=== PATIENT | female | born 1980 | race Caucasian/White ===

== ENCOUNTER 2021-10-15 06:26 | Emergency (ER) | payer BC ==
[~2021-10-15 06:26] MED LIST: NAPROSYN375 MG PO; NORFLEX100 MG PO; VICODIN ES 7501 TAB PO
[2021-10-15 06:36] VITALS: BP 111/70
[2021-10-15] MEDS ORDERED: PREDNISONE10 MG PO (07:54)
[2021-10-15] MEDS ORDERED: CYCLOBENZAPRINE10 MG PO (07:54)
[2021-10-15] MEDS ORDERED: HYDROCODONE-AC1 EAC1 PO (07:55)
== END 2021-10-15 08:01 | disposition home or self-care (01) ==
LOC: ED 06:26
DX: M43.6 Torticollis (principal); H92.01 Otalgia, right ear; Z88.8 Allergy status to other drugs, medicaments and biological substances